=== PATIENT | female | born 1945 | race Caucasian/White ===

== ENCOUNTER 2017-03-23 10:59 | Emergency (ER) | payer MEDICARE, BC ==
[2009-02-11 10:36] VITALS: BP 141/80
[~2017-03-23] VITALS: Ht 162.6 cm; Wt 81.8 kg
[~2017-03-23 10:59] MED LIST: ALLEGRA 180MG180 MG PO; AMIODARONE HCL200 MG PO; CALCIUM 600600 M2 PO; CALTRATE-600 W600 MG PO; CARDIZEM CD 12120 MG PO; CLARITIN 1010 MG/TAB PO; COUMADIN 5MG5 MG/TAB PO; COUMADIN 77.5 MG/TAB PO; COUMADIN PO; DETROL LA 2 MG2 MG PO; DETROL LA4 PO; DIGITEK0.125 MG PO; ECOTRIN325 MG PO; FROVA PO; HYZAAR 25 MG-101 TAB PO; LISINOPRIL/HCTZ1 TAB PO; LISINOPRIL10 MG PO; LOPRESSOR 550 MG/TAB PO; METOPROLOL100 MG PO; MULTIPLE VITAMI1 CAP PO; MULTIPLE VITAMI1 TAB PO; MVI PO; NORVASC2.5 MG PO; PRILOSEC 20MG20 MG PO; PRILOSEC40 MG PO; SANCTURA XR60 M1 PO; SANCTURA XR60 MG PO; TIKOSYN0.125 MG PO; TIKOSYN0.25 MG PO; TOPAMAX50 MG PO; TOPIRAMATE25 MG PO; TOPROL XL25 MG PO; WARFARIN SOD5 MG PO; ZESTRIL 10MG10 MG PO; detrol LA; flecainide
[2017-03-23 11:04] VITALS: BP 171/96; TEMP 97.7
[2017-03-23 12:35] LABS: HEMATOCRIT 43.4 % (37.0-47.0); HEMOGLOBIN 14.7 g/dl (12.5-16.0); MEAN CELL VOLUME 89 fl (80.0-100.0); MEAN CORPUSCULAR HEMOGLOBIN 30 pg (27.0-31.0); MEAN CORPUSCULAR HGB CONC 34 g/dl (33.0-37.0); MEAN PLATELET VOLUME 9.4 fl (7.4-10.4); PLATELET COUNT 195 K/mm3 (130-400); RED BLOOD COUNT 4.87 M/mm3 (4.10-5.30); REDCELL DISTRIBUTION WIDTH-CV 12.9 % (11.5-14.5)
[2017-03-23 12:38] LABS: ADJUSTED CALCIUM 8.7 mg/dL (8.4-10.2); ALANINE AMINOTRANSFERASE 32 U/L (9-52); ALBUMIN 4.3 gm/dL (3.5-5.0); ALKALINE PHOSPHATASE 71 U/L (50-136); ANION GAP 13 mmol/L (7-16); BILIRUBIN,TOTAL 1.1 mg/dL (0.0-1.0); BLOOD UREA NITROGEN 19 mg/dL (7-17); CALCIUM 8.9 mg/dL (8.4-10.2); CARBON DIOXIDE 24 mmol/L (22-30); CHLORIDE 97 mmol/L (98-107); CREATININE, serum 1.04 mg/dL (0.52-1.25); GLUCOSE 99 mg/dL (74-106); POTASSIUM 4.4 mmol/L (3.4-5.0); SODIUM 134 mmol/L (137-145); TOTAL PROTEIN 7.1 gm/dL (6.4-8.2)
[2017-03-23 12:39] LABS: C-REACTIVE PROTEIN < 0.5 mg/dL (0.0-0.9)
[2017-03-23 12:51] LABS: ADD PATHOLOGY DIFF REVIEW NO; WHITE BLOOD COUNT 25.1 K/mm3 (4.8-10.8)
[2017-03-23 13:24] LABS: BAND 2 % (0-10); NEUTROPHILS 25 % (42.0-75.2); TOTAL CELLS COUNTED 100
[2017-03-23 13:25] LABS: PLATELET ESTIMATE NORMAL (NORMAL)
[2017-03-23] MEDS ORDERED: ZOFRAN ODT4 MG PO (14:48)
[2017-03-23] MEDS ORDERED: BONINE25 MG PO (14:48)
[2017-03-23 15:08] VITALS: PULSE 70
== END 2017-03-23 15:08 | disposition home or self-care (01) ==
LOC: COL.ER 10:59
PROVIDERS: Family Medicine
DX: R42 Dizziness and giddiness (principal); R11.2 Nausea with vomiting, unspecified; I48.91 Unspecified atrial fibrillation; I10 Essential (primary) hypertension; C91.10 Chronic lymphocytic leukemia of B-cell type not having achieved remission; Z95.0 Presence of cardiac pacemaker
CPT/HCPCS: J2405; J7030

== ENCOUNTER 2017-05-11 14:56 | Inpatient (IN) | payer MEDICARE, BC ==
[~2017-05-11] VITALS: Ht 162.6 cm; Wt 86.1 kg
[~2017-05-11 14:56] MED LIST changes: +BONINE25 MG PO; +ZOFRAN ODT4 MG PO
[2017-05-11] MEDS ORDERED: VANTIN100 MG (15:51)
[2017-05-11] MEDS ORDERED: ALLEGRA ALLERG180 MG PO (15:52)
[2017-05-11] MEDS ORDERED: TAMBOCOR150 MG PO (15:53)
[2017-05-11] MEDS ORDERED: OMEGA-3 1000 MG1 CAP PO (15:53)
[2017-05-11] MEDS ORDERED: FLONASEALLERGY NS (15:53)
[2017-05-11] MEDS ORDERED: LOPRESSOR100 MG PO (15:54)
[2017-05-11] MEDS ORDERED: COZAAR 50MG50 MG/TAB PO (15:54)
[2017-05-11] MEDS ORDERED: HCTZ 25MG TAB25 MG PO (15:54)
[2017-05-11] MEDS ORDERED: SYSTANE BALANCE10 M1 OP (15:55)
[2017-05-11] MEDS ORDERED: COUMADIN 5MG5 MG/TAB PO (15:56)
[2017-05-11] MEDS ORDERED: SANCTURA XR60 MG PO (15:56)
[2017-05-11 17:08] LABS: HEMATOCRIT 41.9 % (37.0-47.0); HEMOGLOBIN 14.6 g/dl (12.5-16.0); MEAN CELL VOLUME 87 fl (80.0-100.0); MEAN CORPUSCULAR HEMOGLOBIN 30 pg (27.0-31.0); MEAN CORPUSCULAR HGB CONC 35 g/dl (33.0-37.0); MEAN PLATELET VOLUME 9.3 fl (7.4-10.4); PLATELET COUNT 231 K/mm3 (130-400); RED BLOOD COUNT 4.81 M/mm3 (4.10-5.30); REDCELL DISTRIBUTION WIDTH-CV 13.3 % (11.5-14.5)
[2017-05-11 17:10] LABS: INR 2.3 (0.8-3.0); PROTHROMBIN TIME 26.5 SECONDS (9.7-12.8)
[2017-05-11 17:12] LABS: WHITE BLOOD COUNT 28.4 K/mm3 (4.8-10.8)
[2017-05-11 17:13] LABS: ADD PATHOLOGY DIFF REVIEW NO
[2017-05-11 17:15] LABS: ADJUSTED CALCIUM 10.6 mg/dL (8.4-10.2); ALBUMIN 4.4 gm/dL (3.5-5.0); BILIRUBIN,TOTAL 0.7 mg/dL (0.0-1.0); CALCIUM 10.9 mg/dL (8.4-10.2); CREATININE, serum 1.34 mg/dL (0.52-1.25); POTASSIUM 3.7 mmol/L (3.4-5.0); TOTAL PROTEIN 6.9 gm/dL (6.4-8.2)
[2017-05-11 17:17] LABS: C-REACTIVE PROTEIN 0.5 mg/dL (0.0-0.9)
[2017-05-11 18:27] LABS: BAND 10 % (0-10); NEUTROPHILS 40 % (42.0-75.2); PLATELET ESTIMATE NORMAL (NORMAL); TOTAL CELLS COUNTED 100
[2017-05-11 19:35] LABS: PH 6 (5-8); SQUAMOUS EPITHELIAL 0-2 /hpf; URINE APPEARANCE Clear; URINE BACTERIA None Seen /hpf; URINE BILIRUBIN Negative (NEGATIVE); URINE BLOOD 2+ (NEGATIVE); URINE COLOR Yellow; URINE GLUCOSE Negative (NEGATIVE); URINE KETONE Negative (NEGATIVE); URINE UROBILINOGEN Negative (NEGATIVE); URINE WBC 0-2 /hpf
[2017-05-11 20:17] VITALS: BP 182/92; PULSE 71; TEMP 97.9
[2017-05-11] MEDS ORDERED: TYLENOL 325MG325 MG PO (21:01)
[2017-05-11 21:07] LABS: ARTERIAL BLD GAS O2 SATURATION 64.2 % (92-100); ARTERIAL BLD GAS TCO2 CT 33.6; ARTERIAL BLOOD GAS BASE EXCESS 5.9 (-2-2); ARTERIAL BLOOD GAS PHT 7.41 C (7.35-7.45); ARTERIAL BLOOD GAS pH 7.41 (7.35-7.45); OXYHEMOGLOBIN 63.6 %
[2017-05-11 21:11] LABS: ALLEN TEST YES; ARTERIAL BLOOD GAS PO2 31.4 mmHg (80-100); ARTERIAL BLOOD GAS PO2T 31.4 (80-100); ATS? YES
[2017-05-11 22:09] VITALS: BP 121/61; BP 129/70; PULSE 70; PULSE 74
[2017-05-11 22:10] VITALS: BP 88/47; PULSE 72
[2017-05-11] MEDS ORDERED: COUMADIN 77.5 MG/TAB PO (22:58)
[2017-05-11 23:10] VITALS: BP 137/68; PULSE 74; TEMP 98.2
[2017-05-12 03:57] VITALS: BP 139/81; PULSE 56; TEMP 97.9
[2017-05-12 07:14] LABS: INR 2.2 (0.8-3.0); PROTHROMBIN TIME 25.3 SECONDS (9.7-12.8)
[2017-05-12 07:21] LABS: CALCIUM 9.1 mg/dL (8.4-10.2); CREATININE, serum 1.17 mg/dL (0.52-1.25); POTASSIUM 3.4 mmol/L (3.4-5.0)
[2017-05-12 07:25] LABS: HEMOGLOBIN 13.6 g/dl (12.5-16.0); MEAN CELL VOLUME 89 fl (80.0-100.0); MEAN CORPUSCULAR HEMOGLOBIN 30 pg (27.0-31.0); MEAN CORPUSCULAR HGB CONC 34 g/dl (33.0-37.0); MEAN PLATELET VOLUME 9.7 fl (7.4-10.4); PLATELET COUNT 206 K/mm3 (130-400); RED BLOOD COUNT 4.48 M/mm3 (4.10-5.30); REDCELL DISTRIBUTION WIDTH-CV 13.4 % (11.5-14.5)
[2017-05-12 07:31] LABS: ADD PATHOLOGY DIFF REVIEW NO; WHITE BLOOD COUNT 25.4 K/mm3 (4.8-10.8)
[2017-05-12 08:12] LABS: BAND 1 % (0-10); EOSINOPHIL 2 % (0-4); METAMYELOCYTE 2 % (0-0); NEUTROPHILS 24 % (42.0-75.2); PLATELET ESTIMATE NORMAL (NORMAL); TOTAL CELLS COUNTED 100
[2017-05-12 08:14] VITALS: BP 136/77; PULSE 71; TEMP 97.3
[2017-05-12 11:56] VITALS: BP 114/68; PULSE 70; TEMP 98.3
[2017-05-12 12:24] LABS: ARTERIAL BLD GAS O2 SATURATION 92.1 % (92-100); ARTERIAL BLD GAS TCO2 CT 30.9; ARTERIAL BLOOD GAS BASE EXCESS 4.5 (-2-2); ARTERIAL BLOOD GAS HCO3 29.5 meq/L (22-26); ARTERIAL BLOOD GAS pH 7.43 (7.35-7.45); OXYHEMOGLOBIN 91.4 %
[2017-05-12 12:25] LABS: ALLEN TEST YES; ALLENS TEST RESULT PASS; ATS? YES
[2017-05-12 15:53] VITALS: BP 111/66; PULSE 70; TEMP 98.1
[2017-05-12 21:04] VITALS: BP 146/82; PULSE 78; TEMP 97.6
[2017-05-13 00:25] VITALS: BP 127/66; PULSE 55; TEMP 97.7
[2017-05-13 04:03] VITALS: BP 103/60; PULSE 73; TEMP 97.6
[2017-05-13 06:35] LABS: MEAN CELL VOLUME 90 fl (80.0-100.0); MEAN CORPUSCULAR HGB CONC 33 g/dl (33.0-37.0); MEAN PLATELET VOLUME 9.4 fl (7.4-10.4); PLATELET COUNT 191 K/mm3 (130-400); RED BLOOD COUNT 3.97 M/mm3 (4.10-5.30); REDCELL DISTRIBUTION WIDTH-CV 13.5 % (11.5-14.5)
[2017-05-13 06:45] LABS: CALCIUM 8.2 mg/dL (8.4-10.2); CREATININE, serum 1.12 mg/dL (0.52-1.25); POTASSIUM 3.6 mmol/L (3.4-5.0)
[2017-05-13 06:51] LABS: HEMATOCRIT 35.9 % (37.0-47.0); HEMOGLOBIN 11.9 g/dl (12.5-16.0); MEAN CORPUSCULAR HEMOGLOBIN 30 pg (27.0-31.0); WHITE BLOOD COUNT 24.4 K/mm3 (4.8-10.8)
[2017-05-13 07:53] VITALS: BP 132/79; PULSE 70; TEMP 98.9
[2017-05-13 09:02] LABS: BAND 8 % (0-10); BASOPHIL 2 % (0-2); EOSINOPHIL 1 % (0-4); METAMYELOCYTE 2 % (0-0); NEUTROPHILS 35 % (42.0-75.2); TOTAL CELLS COUNTED 100
[2017-05-13 09:07] LABS: ADD PATHOLOGY DIFF REVIEW YES
[2017-05-13 11:46] VITALS: BP 140/92; PULSE 71; TEMP 97.6
[2017-05-13 15:49] VITALS: BP 116/66; PULSE 70; TEMP 98.4
[2017-05-13 18:14] LABS: CALCIUM 8.5 mg/dL (8.4-10.2); CREATININE, serum 1.3 mg/dL (0.52-1.25); POTASSIUM 3.5 mmol/L (3.4-5.0)
[2017-05-13 20:54] VITALS: BP 129/67; PULSE 70; TEMP 98
[2017-05-14 04:40] VITALS: BP 115/67; PULSE 75
[2017-05-14 07:59] LABS: HEMOGLOBIN 12.2 g/dl (12.5-16.0); MEAN CELL VOLUME 89 fl (80.0-100.0); MEAN CORPUSCULAR HEMOGLOBIN 30 pg (27.0-31.0); MEAN CORPUSCULAR HGB CONC 34 g/dl (33.0-37.0); MEAN PLATELET VOLUME 9.5 fl (7.4-10.4); PLATELET COUNT 176 K/mm3 (130-400); RED BLOOD COUNT 4.06 M/mm3 (4.10-5.30); REDCELL DISTRIBUTION WIDTH-CV 13.7 % (11.5-14.5)
[2017-05-14 08:05] LABS: ADD PATHOLOGY DIFF REVIEW NO; HEMATOCRIT 36.3 % (37.0-47.0); WHITE BLOOD COUNT 20.4 K/mm3 (4.8-10.8)
[2017-05-14 08:09] LABS: CALCIUM 8.5 mg/dL (8.4-10.2); CREATININE, serum 1.14 mg/dL (0.52-1.25); POTASSIUM 3.8 mmol/L (3.4-5.0)
[2017-05-14 08:20] VITALS: BP 122/70; PULSE 98; TEMP 97.5
[2017-05-14 08:48] LABS: BAND 10 % (0-10); EOSINOPHIL 3 % (0-4); NEUTROPHILS 48 % (42.0-75.2); TOTAL CELLS COUNTED 100
[2017-05-14 08:50] LABS: PLATELET ESTIMATE NORMAL (NORMAL)
[2017-05-14] MEDS ORDERED: COZAAR 50MG50 MG/TAB PO (09:11)
[2017-05-14] MEDS ORDERED: K-TAB20 PO (09:11)
[2017-05-14] MEDS ORDERED: HCTZ 25MG TAB25 MG PO (09:11)
[2017-05-14] MEDS ORDERED: MAG-OX 400400 MG/TAB PO (09:11)
[2017-05-14] MEDS ORDERED: MIRALAX PA17 GM/Dose PO (09:12)
[2017-05-14] MEDS ORDERED: COLACE 100100 MG/CAP PO (09:12)
[2017-05-14 18:55] LABS: RHEUMATOID FACTOR-SCREEN <15 IU/mL (0-29)
[2017-05-14 19:23] LABS: .THYROGLOBULIN ANTIBODIES <3 IU/mL (0-5)
[2017-05-16 08:50] LABS: PATHOLOGY DIFF REVIEW OK
[2017-05-16 21:10] LABS: ANA SCREEN with REFLEX Negative (Negative)
== END 2017-05-14 11:25 | DRG 64 ==
LOC: COL.ER 14:56 → MEDICAL 19:16
PROVIDERS: Emergency Medicine; Nurse Practitioner Family; Physician Assistant; Psychiatry & Neurology Neurology
DX: I63.9 Cerebral infarction, unspecified (principal); I50.31 Acute diastolic (congestive) heart failure; N17.9 Acute kidney failure, unspecified; C91.10 Chronic lymphocytic leukemia of B-cell type not having achieved remission; E87.1 Hypo-osmolality and hyponatremia; I11.0 Hypertensive heart disease with heart failure; R26.0 Ataxic gait; R47.02 Dysphasia; I48.91 Unspecified atrial fibrillation; Z95.0 Presence of cardiac pacemaker; M79.7 Fibromyalgia; E87.8 Other disorders of electrolyte and fluid balance, not elsewhere classified; Z79.01 Long term (current) use of anticoagulants; Z91.81 History of falling; K31.84 Gastroparesis; I08.1 Rheumatic disorders of both mitral and tricuspid valves
CPT/HCPCS: 99222-AI; 99233-AI; 99239; J1940; J2405; J7030; Q9967

== ENCOUNTER 2017-05-13 12:36 | Inpatient (IN) | payer MEDICARE, BC ==
[~2017-05-13] VITALS: Ht 162.6 cm; Wt 82.8 kg
[~2017-05-13 12:36] MED LIST changes: +ALLEGRA ALLERG180 MG PO; +COZAAR 50MG50 MG/TAB PO; +FLONASEALLERGY NS; +HCTZ 25MG TAB25 MG PO; +LOPRESSOR100 MG PO; +OMEGA-3 1000 MG1 CAP PO; +SYSTANE BALANCE10 M1 OP; +TAMBOCOR150 MG PO; +TYLENOL 325MG325 MG PO; +VANTIN100 MG
[2017-05-14] MEDS ORDERED: K-TAB20 PO (09:11)
[2017-05-14] MEDS ORDERED: COZAAR 50MG50 MG/TAB PO (09:11)
[2017-05-14] MEDS ORDERED: MAG-OX 400400 MG/TAB PO (09:11)
[2017-05-14] MEDS ORDERED: HCTZ 25MG TAB25 MG PO (09:11)
[2017-05-14] MEDS ORDERED: COLACE 100100 MG/CAP PO (09:12)
[2017-05-14] MEDS ORDERED: MIRALAX PA17 GM/Dose PO (09:12)
[2017-05-14 13:33] VITALS: BP 91/51; PULSE 72; TEMP 98.2
[2017-05-14 21:30] VITALS: BP 114/70; PULSE 66; TEMP 98.6
[2017-05-15 06:41] VITALS: BP 142/72; PULSE 74; TEMP 98.5
[2017-05-15 16:44] VITALS: BP 156/86; PULSE 72; TEMP 99.5
[2017-05-16 04:23] VITALS: BP 134/61; PULSE 58; TEMP 97.8
[2017-05-16 05:23] LABS: HEMATOCRIT 39.3 % (37.0-47.0); HEMOGLOBIN 12.9 g/dl (12.5-16.0); MEAN CELL VOLUME 91 fl (80.0-100.0); MEAN CORPUSCULAR HEMOGLOBIN 30 pg (27.0-31.0); MEAN CORPUSCULAR HGB CONC 33 g/dl (33.0-37.0); MEAN PLATELET VOLUME 9.2 fl (7.4-10.4); PLATELET COUNT 188 K/mm3 (130-400); RED BLOOD COUNT 4.32 M/mm3 (4.10-5.30); REDCELL DISTRIBUTION WIDTH-CV 13.8 % (11.5-14.5)
[2017-05-16 05:29] LABS: WHITE BLOOD COUNT 26.4 K/mm3 (4.8-10.8)
[2017-05-16 05:30] LABS: ADD PATHOLOGY DIFF REVIEW NO
[2017-05-16 05:41] LABS: CALCIUM 8.9 mg/dL (8.4-10.2); CREATININE, serum 1.07 mg/dL (0.52-1.25); MAGNESIUM 2.2 mg/dL (1.6-2.3); POTASSIUM 4.5 mmol/L (3.4-5.0)
[2017-05-16 06:11] LABS: BAND 3 % (0-10); NEUTROPHILS 29 % (42.0-75.2); TOTAL CELLS COUNTED 100
[2017-05-16 06:12] LABS: PLATELET ESTIMATE NORMAL (NORMAL)
[2017-05-16 16:24] VITALS: BP 160/90; PULSE 70; TEMP 97.5
[2017-05-17 04:45] VITALS: BP 109/74; PULSE 68; TEMP 98.6
[2017-05-17 16:24] VITALS: BP 152/93; PULSE 72; TEMP 97.8
[2017-05-17 21:30] VITALS: BP 177/88; PULSE 71
[2017-05-18 04:39] VITALS: BP 129/74; PULSE 56; TEMP 98.2
[2017-05-18 11:35] LABS: INR 1.7 (0.8-3.0); PROTHROMBIN TIME 19.5 SECONDS (9.7-12.8)
[2017-05-18 18:18] VITALS: BP 110/67; PULSE 74; TEMP 97.7
[2017-05-19 04:29] VITALS: BP 141/72; PULSE 56; TEMP 98.3
[2017-05-19 09:00] VITALS: BP 80/40; PULSE 72; TEMP 97.8
[2017-05-19 12:50] VITALS: BP 91/40; PULSE 71; TEMP 97.4
[2017-05-19 16:25] LABS: PH 7 (5-8); SQUAMOUS EPITHELIAL 0-2 /hpf; URINE APPEARANCE Hazy; URINE BACTERIA Occasional /hpf; URINE BILIRUBIN Negative (NEGATIVE); URINE BLOOD Negative (NEGATIVE); URINE COLOR Yellow; URINE GLUCOSE 1+ (NEGATIVE); URINE KETONE Negative (NEGATIVE); URINE RBC 0-2 /hpf; URINE UROBILINOGEN Negative (NEGATIVE)
[2017-05-19 18:37] VITALS: BP 142/71; PULSE 71; TEMP 97.5
[2017-05-19 21:00] VITALS: BP 154/89
[2017-05-20 04:30] VITALS: BP 108/67; PULSE 68; TEMP 98.5
[2017-05-20 05:53] LABS: ADD PATHOLOGY DIFF REVIEW NO
[2017-05-20 05:55] LABS: HEMATOCRIT 39.1 % (37.0-47.0); HEMOGLOBIN 12.6 g/dl (12.5-16.0); MEAN CELL VOLUME 93 fl (80.0-100.0); MEAN CORPUSCULAR HEMOGLOBIN 30 pg (27.0-31.0); MEAN CORPUSCULAR HGB CONC 32 g/dl (33.0-37.0); MEAN PLATELET VOLUME 9.3 fl (7.4-10.4); PLATELET COUNT 205 K/mm3 (130-400); RED BLOOD COUNT 4.21 M/mm3 (4.10-5.30); REDCELL DISTRIBUTION WIDTH-CV 14.2 % (11.5-14.5)
[2017-05-20 05:58] LABS: WHITE BLOOD COUNT 24.3 K/mm3 (4.8-10.8)
[2017-05-20 06:07] LABS: BAND 1 % (0-10); EOSINOPHIL 1 % (0-4); NEUTROPHILS 15 % (42.0-75.2); TOTAL CELLS COUNTED 100
[2017-05-20 06:10] LABS: ALBUMIN 3.9 gm/dL (3.5-5.0); BILIRUBIN,TOTAL 0.4 mg/dL (0.0-1.0); CALCIUM 8.9 mg/dL (8.4-10.2); CREATININE, serum 1.16 mg/dL (0.52-1.25); MAGNESIUM 2.3 mg/dL (1.6-2.3); POTASSIUM 4.9 mmol/L (3.4-5.0); TOTAL PROTEIN 6.2 gm/dL (6.4-8.2)
[2017-05-20 06:19] LABS: INR 1.6 (0.8-3.0); PROTHROMBIN TIME 18.5 SECONDS (9.7-12.8)
[2017-05-20 16:36] VITALS: BP 134/73; PULSE 78; TEMP 98.6
[2017-05-21 06:06] VITALS: BP 114/60; PULSE 73; TEMP 98.1
[2017-05-21 07:40] LABS: INR 1.7 (0.8-3.0); PROTHROMBIN TIME 19.6 SECONDS (9.7-12.8)
[2017-05-21 17:23] VITALS: BP 134/71; PULSE 79; TEMP 98.3
[2017-05-22 05:04] VITALS: BP 135/58; PULSE 63; TEMP 98.4
[2017-05-22 15:57] VITALS: BP 162/77; PULSE 78; TEMP 98.2
[2017-05-23 04:51] VITALS: BP 128/61; PULSE 72; TEMP 98.6
[2017-05-23 07:34] LABS: INR 2.3 (0.8-3.0); PROTHROMBIN TIME 26.1 SECONDS (9.7-12.8)
[2017-05-23 16:49] VITALS: BP 133/73; PULSE 73; TEMP 98.9
[2017-05-23 21:30] VITALS: BP 165/67; PULSE 63
[2017-05-24 04:36] VITALS: BP 130/58; PULSE 66; TEMP 98.8
[2017-05-24 07:12] LABS: INR 1.9 (0.8-3.0)
[2017-05-24 17:32] VITALS: BP 150/77; PULSE 71; TEMP 99.1
[2017-05-24 21:30] VITALS: BP 145/85; PULSE 73
[2017-05-25 05:20] VITALS: BP 129/72; PULSE 77; TEMP 97.8
[2017-05-25 06:08] LABS: INR 1.9 (0.8-3.0); PROTHROMBIN TIME 21.2 SECONDS (9.7-12.8)
[2017-05-25] MEDS ORDERED: COZAAR 25MG25 MG/TAB PO (11:17)
[2017-05-25] MEDS ORDERED: LOPRESSOR 550 MG/TAB PO (11:17)
[2017-05-25] MEDS ORDERED: K-TAB20 PO (11:18)
[2017-05-25] MEDS ORDERED: MAG-OX 400400 MG/TAB PO (11:19)
[2017-05-25] MEDS ORDERED: LIPITOR 10MG10 MG PO (11:23)
== END 2017-05-25 15:25 | disposition home or self-care (01) | DRG 57 ==
PROVIDERS: Internal Medicine
DX: I69.365 Other paralytic syndrome following cerebral infarction, bilateral (principal); G82.20 Paraplegia, unspecified; N39.0 Urinary tract infection, site not specified; I48.91 Unspecified atrial fibrillation; I10 Essential (primary) hypertension; M79.7 Fibromyalgia; B96.20 Unspecified Escherichia coli [E. coli] as the cause of diseases classified elsewhere
CPT/HCPCS: 99222-AI; 99232-AI; 99233-AI; 99239; J0696; J7030

== ENCOUNTER → 2017-09-06 | Outpatient (CLI) | payer MEDICARE, BC ==
[~2017-09-06] MED LIST changes: +B-121000 MCG PO; +CARTIA XT120 MG PO; +COLACE 100100 MG/CAP PO; +COZAAR 25MG25 MG/TAB PO; +K-TAB20 PO; +LIPITOR 10MG10 MG PO; +MAG-OX 400400 MG/TAB PO; +MAGNESIUM250 M1 PO; +MIRALAX PA17 GM/Dose PO
== END ==
LOC: MC.RAD 16:20
DX: Z12.31 Encounter for screening mammogram for malignant neoplasm of breast (principal); Z95.0 Presence of cardiac pacemaker

== ENCOUNTER 2017-09-13 18:42 | Emergency (ER) | payer MEDICARE, BC ==
[2009-02-11 10:36] VITALS: BP 141/80
[~2017-09-13] VITALS: Ht 162.6 cm; Wt 82.3 kg
[~2017-09-13 18:42] MED LIST changes: -B-121000 MCG PO; -CARTIA XT120 MG PO; -MAGNESIUM250 M1 PO
[2017-09-13 18:44] VITALS: TEMP 98
[2017-09-13 19:06] LABS: HEMATOCRIT 43.1 % (37.0-47.0); MEAN CELL VOLUME 93 fl (80.0-100.0); MEAN CORPUSCULAR HEMOGLOBIN 30 pg (27.0-31.0); MEAN CORPUSCULAR HGB CONC 33 g/dl (33.0-37.0); PLATELET COUNT 208 K/mm3 (130-400); RED BLOOD COUNT 4.65 M/mm3 (4.10-5.30)
[2017-09-13] MEDS ORDERED: COZAAR 25MG25 MG/TAB PO (19:12)
[2017-09-13 19:16] LABS: WHITE BLOOD COUNT 23.6 K/mm3 (4.8-10.8)
[2017-09-13 19:17] LABS: ADD PATHOLOGY DIFF REVIEW NO; INR 1.5 (0.8-3.0); PROTHROMBIN TIME 16.8 SECONDS (9.7-12.8)
[2017-09-13 19:18] LABS: ADJUSTED CALCIUM 8.8 mg/dL (8.4-10.2); ALANINE AMINOTRANSFERASE 36 U/L (9-52); ALKALINE PHOSPHATASE 106 U/L (50-136); ANION GAP 13 mmol/L (7-16); BILIRUBIN,TOTAL 0.4 mg/dL (0.0-1.0); BLOOD UREA NITROGEN 21 mg/dL (7-17); CALCIUM 9.6 mg/dL (8.4-10.2); CARBON DIOXIDE 25 mmol/L (22-30); CHLORIDE 103 mmol/L (98-107); CREATINE KINASE 101 U/L (30-135); CREATININE, serum 1.18 mg/dL (0.52-1.25); GLUCOSE 100 mg/dL (74-106); POTASSIUM 4.1 mmol/L (3.4-5.0); SODIUM 141 mmol/L (137-145); TOTAL PROTEIN 7.6 gm/dL (6.4-8.2)
[2017-09-13] MEDS ORDERED: MAGNESIUM250 M1 PO (19:18)
[2017-09-13] MEDS ORDERED: B-121000 MCG PO (19:19)
[2017-09-13] MEDS ORDERED: CARTIA XT120 MG PO (19:20)
[2017-09-13 19:27] LABS: BAND 2 % (0-10); EOSINOPHIL 2 % (0-4); NEUTROPHILS 29 % (42.0-75.2); PLATELET ESTIMATE NORMAL (NORMAL); TOTAL CELLS COUNTED 100
[2017-09-13 19:28] LABS: LYMPHOCYTE 62 % (20.0-51.0)
[2017-09-13 19:30] LABS: B-TYPE NATRIURETIC PEPTIDE 691 pg/mL (0-125)
[2017-09-13 19:32] LABS: TROPONIN-I < 0.012 ng/mL (0.000-0.034)
[2017-09-13] MEDS ORDERED: COUMADIN 5MG5 MG/TAB PO ×2 (20:27→20:28)
[2017-09-13 21:41] VITALS: BP 161/89; PULSE 69
== END 2017-09-13 21:42 | disposition home or self-care (01) ==
LOC: COL.ER 18:42
PROVIDERS: Emergency Medicine
DX: I10 Essential (primary) hypertension (principal); I48.91 Unspecified atrial fibrillation; Z95.0 Presence of cardiac pacemaker; Z79.01 Long term (current) use of anticoagulants
CPT/HCPCS: J0360

== ENCOUNTER → 2019-05-10 | Outpatient (CLI) | payer MEDICARE, BC ==
[~2019-05-10] MED LIST changes: +B-121000 MCG PO; +CARTIA XT120 MG PO; +MAGNESIUM250 M1 PO
== END ==
LOC: MC.RAD 14:42
DX: Z12.31 Encounter for screening mammogram for malignant neoplasm of breast (principal); Z95.0 Presence of cardiac pacemaker

== ENCOUNTER 2019-08-30 08:15 | Outpatient (RCR) | payer MEDICARE, BC | END 2019-09-10 | disposition home or self-care (01) | LOC: WSST | DX: G31.84 Mild cognitive impairment of uncertain or unknown etiology (principal) ==

== ENCOUNTER 2019-10-05 17:10 | Emergency (ER) | payer MEDICARE, BC ==
[2009-02-11 10:36] VITALS: BP 141/80
[~2019-10-05] VITALS: Ht 160 cm; Wt 75.0 kg
[2019-10-05 18:43] LABS: HEMATOCRIT 41.3 % (37.0-47.0); HEMOGLOBIN 13.7 g/dl (12.5-16.0); MEAN CELL VOLUME 93 fl (80.0-100.0); MEAN CORPUSCULAR HEMOGLOBIN 31 pg (27.0-31.0); MEAN CORPUSCULAR HGB CONC 33 g/dl (33.0-37.0); MEAN PLATELET VOLUME 9.3 fl (7.4-10.4); PLATELET COUNT 181 K/mm3 (130-400); RED BLOOD COUNT 4.45 M/mm3 (4.10-5.30); REDCELL DISTRIBUTION WIDTH-CV 13.1 % (11.5-14.5)
[2019-10-05 18:50] LABS: INR 1.6 (0.8-3.0); PROTHROMBIN TIME 19.5 SECONDS (9.7-12.8)
[2019-10-05 19:02] LABS: COLLECTION METHOD CLEAN CATCH
[2019-10-05 19:06] LABS: ALANINE AMINOTRANSFERASE 25 U/L (9-52); ALBUMIN 4.1 gm/dL (3.5-5.0); ALKALINE PHOSPHATASE 75 U/L (50-136); ANION GAP 10 mmol/L (7-16); AST,SGOT 26 U/L (15-37); BILIRUBIN,TOTAL 0.5 mg/dL (0.0-1.0); BLOOD UREA NITROGEN 26 mg/dL (7-17); CALCIUM 9.4 mg/dL (8.4-10.2); CARBON DIOXIDE 28 mmol/L (22-30); CHLORIDE 102 mmol/L (98-107); CREATININE, serum 1.23 (0.52-1.25); GLUCOSE 106 mg/dL (74-106); POTASSIUM 3.4 mmol/L (3.4-5.0); SODIUM 139 mmol/L (137-145); TOTAL PROTEIN 6.4 gm/dL (6.4-8.2)
[2019-10-05 19:08] LABS: C-REACTIVE PROTEIN < 0.5 mg/dL (0.0-0.9)
[2019-10-05 19:11] LABS: LYMPHOCYTE 52 % (20.0-51.0); NEUTROPHILS 46 % (42.0-75.2)
[2019-10-05 19:12] LABS: PLATELET ESTIMATE NORMAL (NORMAL)
[2019-10-05 19:15] LABS: TROPONIN-I < 0.012 ng/mL (0.000-0.035)
[2019-10-05 19:36] LABS: MUCOUS Present /lpf; PH 6 (5-8); SQUAMOUS EPITHELIAL 0-2 /hpf; URINE APPEARANCE Clear; URINE BACTERIA Rare /hpf; URINE BILIRUBIN Negative (NEGATIVE); URINE BLOOD 2+ (NEGATIVE); URINE COLOR Yellow; URINE GLUCOSE Negative (NEGATIVE); URINE KETONE Negative (NEGATIVE); URINE LEUKOCYTE ESTERASE 2+ (NEGATIVE); URINE NITRATE Positive (NEGATIVE); URINE PROTEIN(semi-quant) Negative (NEGATIVE); URINE RBC 0-2 /hpf; URINE UROBILINOGEN Negative (NEGATIVE)
[2019-10-05] MEDS ORDERED: CEFTIN500 MG PO (20:05)
[2019-10-05 20:22] VITALS: BP 116/66; PULSE 73; TEMP 98.4
== END 2019-10-05 20:35 | disposition home or self-care (01) ==
LOC: COL.ER 17:10
PROVIDERS: Emergency Medicine
DX: I48.91 Unspecified atrial fibrillation (principal); N39.0 Urinary tract infection, site not specified; C91.10 Chronic lymphocytic leukemia of B-cell type not having achieved remission; I10 Essential (primary) hypertension; F41.9 Anxiety disorder, unspecified; Z79.01 Long term (current) use of anticoagulants
CPT/HCPCS: J7030

== ENCOUNTER 2019-10-29 12:45 | Outpatient (RCR) | payer MEDICARE, BC ==
[~2019-10-29 12:45] MED LIST changes: +CEFTIN500 MG PO
== END 2019-11-04 | disposition still patient (30) ==
LOC: MKS.ESL.PT
DX: M70.62 Trochanteric bursitis, left hip (principal); M75.41 Impingement syndrome of right shoulder

== ENCOUNTER 2019-11-01 07:03 | Emergency (ER) | payer MEDICARE, BC ==
[2009-02-11 10:36] VITALS: BP 141/80
[~2019-11-01] VITALS: Ht 160 cm; Wt 75.0 kg
[2019-11-01 07:07] VITALS: BP 15/72; TEMP 98.8
[2019-11-01 07:49] LABS: HEMATOCRIT 42.7 % (37.0-47.0); MEAN CELL VOLUME 94 fl (80.0-100.0); MEAN CORPUSCULAR HEMOGLOBIN 31 pg (27.0-31.0); MEAN CORPUSCULAR HGB CONC 33 g/dl (33.0-37.0); MEAN PLATELET VOLUME 9.4 fl (7.4-10.4); PLATELET COUNT 192 K/mm3 (130-400); RED BLOOD COUNT 4.55 M/mm3 (4.10-5.30)
[2019-11-01 07:52] LABS: INR 2.4 (0.8-3.0); PROTHROMBIN TIME 29.3 SECONDS (9.7-12.8)
[2019-11-01 08:44] LABS: EOSINOPHIL 1 % (0-4); LYMPHOCYTE 78 % (20.0-51.0); NEUTROPHILS 19 % (42.0-75.2); PLATELET ESTIMATE NORMAL (NORMAL)
[2019-11-01 09:05] VITALS: PULSE 76
== END 2019-11-01 09:05 | disposition home or self-care (01) ==
LOC: COL.ER 07:03
PROVIDERS: Emergency Medicine
DX: S00.03XA Contusion of scalp, initial encounter (principal); R40.2412 Glasgow coma scale score 13-15, at arrival to emergency department; I48.91 Unspecified atrial fibrillation; Z79.01 Long term (current) use of anticoagulants; W22.8XXA Striking against or struck by other objects, initial encounter; Y92.009 Unspecified place in unspecified non-institutional (private) residence as the place of occurrence of the external cause

== ENCOUNTER 2019-11-15 15:32 | Outpatient (RCR) | payer MEDICARE, BC | END 2020-02-13 | disposition home or self-care (01) | LOC: WSST | DX: G31.84 Mild cognitive impairment of uncertain or unknown etiology (principal) ==

== ENCOUNTER 2020-06-14 17:06 | Emergency (ER) | payer MEDICARE, BC ==
[2009-02-11 10:36] VITALS: BP 141/80
[~2020-06-14] VITALS: Ht 160 cm; Wt 85.0 kg
[~2020-06-14 17:06] MED LIST changes: +ATIVAN 0.50.5 MG/TAB PO; +CATAPRES 0.1MG0.1 MG PO; +CEPHALEXIN500 M1 PO; +COUMADIN 1010 MG/TAB PO; +FLEXERIL 1010 MG/TAB PO; +HYDRODIURIL50 MG PO; +NORVASC 5MG5 MG/TAB PO
[2020-06-14 17:15] VITALS: TEMP 98.2
[2020-06-14 17:36] LABS: HEMATOCRIT 44.8 % (37.0-47.0); HEMOGLOBIN 14.8 g/dl (12.5-16.0); MEAN CELL VOLUME 92 fl (80.0-100.0); MEAN CORPUSCULAR HEMOGLOBIN 30 pg (27.0-31.0); MEAN CORPUSCULAR HGB CONC 33 g/dl (33.0-37.0); PLATELET COUNT 218 K/mm3 (130-400); RED BLOOD COUNT 4.89 M/mm3 (4.10-5.30); REDCELL DISTRIBUTION WIDTH-CV 13.7 % (11.5-14.5)
[2020-06-14 17:41] LABS: ALBUMIN 4.7 gm/dL (3.5-5.0); CALCIUM 9.5 mg/dL (8.4-10.2); CREATININE, serum 1.3 (0.52-1.25); POTASSIUM 3.9 mmol/L (3.4-5.0); TOTAL PROTEIN 7.4 gm/dL (6.4-8.2)
[2020-06-14 18:30] VITALS: BP 144/71; PULSE 64
[2020-06-14 18:41] LABS: EOSINOPHIL 0 % (0-4); HYPOCHROMIA 3+; LYMPHOCYTE 66 % (20.0-51.0); NEUTROPHILS 30 % (42.0-75.2); PLATELET ESTIMATE NORMAL (NORMAL)
== END 2020-06-14 18:37 | disposition home or self-care (01) ==
LOC: COL.ER 17:06
PROVIDERS: Family Medicine
DX: I10 Essential (primary) hypertension (principal); I48.91 Unspecified atrial fibrillation; Z88.8 Allergy status to other drugs, medicaments and biological substances; Z79.01 Long term (current) use of anticoagulants

== ENCOUNTER 2020-07-08 13:45 | Emergency (ER) | payer MEDICARE, BC ==
[2009-02-11 10:36] VITALS: BP 141/80
[~2020-07-08] VITALS: Ht 160 cm; Wt 84.1 kg
[2020-07-08 13:53] VITALS: TEMP 98
[2020-07-08] MEDS ORDERED: SANCTURA XR60 MG PO (14:28)
[2020-07-08] MEDS ORDERED: TURMERIC500 MG PO (14:29)
[2020-07-08 15:15] LABS: HEMATOCRIT 40.2 % (37.0-47.0); MEAN CELL VOLUME 93 fl (80.0-100.0); MEAN CORPUSCULAR HEMOGLOBIN 30 pg (27.0-31.0); MEAN CORPUSCULAR HGB CONC 32 g/dl (33.0-37.0); MEAN PLATELET VOLUME 9.1 fl (7.4-10.4); PLATELET COUNT 205 K/mm3 (130-400); RED BLOOD COUNT 4.33 M/mm3 (4.10-5.30)
[2020-07-08 15:27] LABS: ALANINE AMINOTRANSFERASE 29 U/L (4-34); ALBUMIN 4.1 gm/dL (3.5-5.0); ALKALINE PHOSPHATASE 84 U/L (50-136); ANION GAP 7 mmol/L (7-16); AST,SGOT 35 U/L (15-37); BILIRUBIN,TOTAL 0.5 mg/dL (0.0-1.0); BLOOD UREA NITROGEN 21 mg/dL (7-17); C-REACTIVE PROTEIN < 0.5 mg/dL (0.0-0.9); CALCIUM 8.6 mg/dL (8.4-10.2); CARBON DIOXIDE 31 mmol/L (22-30); CHLORIDE 101 mmol/L (98-107); CREATININE, serum 1.18 (0.52-1.25); GLUCOSE 115 mg/dL (74-106); POTASSIUM 3.7 mmol/L (3.4-5.0); SODIUM 139 mmol/L (137-145); TOTAL PROTEIN 6.4 gm/dL (6.4-8.2)
[2020-07-08 15:37] LABS: TROPONIN-I < 0.012 ng/mL (0.000-0.035)
[2020-07-08 15:40] LABS: ERYTHROCYTE SEDIMENTATION RATE 5 mm/hr (0-30)
[2020-07-08 15:44] LABS: EOSINOPHIL 1 % (0-4); LYMPHOCYTE 78 % (20.0-51.0); NEUTROPHILS 18 % (42.0-75.2); PLATELET ESTIMATE NORMAL (NORMAL)
[2020-07-08 15:53] LABS: PROTHROMBIN TIME 56.8 SECONDS (9.7-12.8)
[2020-07-08] MEDS ORDERED: NORCO 325 MG-51 TAB PO (17:19)
[2020-07-08 18:15] VITALS: BP 143/82; PULSE 84
[2020-07-09 08:36] LABS: PATHOLOGY DIFF REVIEW OK +
== END 2020-07-08 18:15 | disposition home or self-care (01) ==
LOC: COL.ER 13:45
PROVIDERS: Emergency Medicine
DX: M25.511 Pain in right shoulder (principal); I10 Essential (primary) hypertension; I48.91 Unspecified atrial fibrillation; E78.5 Hyperlipidemia, unspecified; Z79.01 Long term (current) use of anticoagulants; Z86.73 Personal history of transient ischemic attack (TIA), and cerebral infarction without residual deficits; Z85.6 Personal history of leukemia; Z87.891 Personal history of nicotine dependence; Z88.8 Allergy status to other drugs, medicaments and biological substances

== ENCOUNTER → 2020-08-08 | Outpatient (CLI) | payer MEDICARE, BC ==
[~2020-08-08] MED LIST changes: +NORCO 325 MG-51 TAB PO; +TURMERIC500 MG PO
== END ==
LOC: COL.RAD 07-29 08:15
DX: M75.121 Complete rotator cuff tear or rupture of right shoulder, not specified as traumatic (principal)

== ENCOUNTER 2020-11-01 19:52 | Emergency (ER) | payer MEDICARE, BC ==
[2009-02-11 10:36] VITALS: BP 141/80
[~2020-11-01] VITALS: Ht 160 cm; Wt 85.5 kg
[2020-11-01 20:00] VITALS: TEMP 97.9
[2020-11-01 20:43] VITALS: BP 145/69; PULSE 72
== END 2020-11-01 20:44 | disposition home or self-care (01) ==
LOC: COL.ER 19:52
DX: I10 Essential (primary) hypertension (principal); I48.91 Unspecified atrial fibrillation; Z95.0 Presence of cardiac pacemaker; Z98.61 Coronary angioplasty status; Z88.8 Allergy status to other drugs, medicaments and biological substances; Z79.01 Long term (current) use of anticoagulants

== ENCOUNTER → 2020-12-02 | Outpatient (CLI) | payer MEDICARE, BC | LOC: COL.RAD 07:40 | DX: I70.1 Atherosclerosis of renal artery (principal); I74.5 Embolism and thrombosis of iliac artery | CPT/HCPCS: Q9967 ==

== ENCOUNTER 2020-12-08 10:13 | Emergency (ER) | payer MEDICARE, BC ==
[2009-02-11 10:36] VITALS: BP 141/80
[~2020-12-08] VITALS: Ht 162.6 cm; Wt 84.1 kg
[2020-12-08 10:16] VITALS: TEMP 98.1
[2020-12-08 10:48] LABS: HEMATOCRIT 39.8 % (37.0-47.0); MEAN CELL VOLUME 92 fl (80.0-100.0); MEAN CORPUSCULAR HEMOGLOBIN 30 pg (27.0-31.0); MEAN CORPUSCULAR HGB CONC 33 g/dl (33.0-37.0); MEAN PLATELET VOLUME 9.2 fl (7.4-10.4); PLATELET COUNT 165 K/mm3 (130-400); RED BLOOD COUNT 4.34 M/mm3 (4.10-5.30)
[2020-12-08 10:58] LABS: ALANINE AMINOTRANSFERASE 15 U/L (4-34); ALBUMIN 3.5 gm/dL (3.5-5.0); ALKALINE PHOSPHATASE 59 U/L (50-136); ANION GAP 6 mmol/L (7-16); AST,SGOT 27 U/L (15-37); BILIRUBIN,TOTAL 0.6 mg/dL (0.0-1.0); BLOOD UREA NITROGEN 19 mg/dL (7-17); CALCIUM 8.4 mg/dL (8.4-10.2); CARBON DIOXIDE 30 mmol/L (22-30); CHLORIDE 103 mmol/L (98-107); CREATININE, serum 1.19 (0.52-1.25); GLUCOSE 64 mg/dL (74-106); POTASSIUM 3.5 mmol/L (3.4-5.0); SODIUM 139 mmol/L (137-145); TOTAL PROTEIN 5.6 gm/dL (6.4-8.2)
[2020-12-08 11:18] LABS: TROPONIN-I < 0.012 ng/mL (0.000-0.035)
[2020-12-08 11:25] LABS: EOSINOPHIL 3 % (0-4); LYMPHOCYTE 78 % (20.0-51.0); NEUTROPHILS 17 % (42.0-75.2); PLATELET ESTIMATE NORMAL (NORMAL)
[2020-12-08 11:31] LABS: COLLECTION METHOD CLEAN CATCH
[2020-12-08 11:43] LABS: PH 8 (5-8); SQUAMOUS EPITHELIAL 0-2 /hpf; URINE APPEARANCE Clear; URINE BACTERIA Rare /hpf; URINE BILIRUBIN Negative (NEGATIVE); URINE BLOOD Negative (NEGATIVE); URINE COLOR Yellow; URINE GLUCOSE Negative (NEGATIVE); URINE KETONE Negative (NEGATIVE); URINE LEUKOCYTE ESTERASE Negative (NEGATIVE); URINE NITRATE Negative (NEGATIVE); URINE PROTEIN(semi-quant) Negative (NEGATIVE); URINE UROBILINOGEN Negative (NEGATIVE)
[2020-12-08 14:15] VITALS: BP 108/53; PULSE 59
[2020-12-08] MEDS ORDERED: CATAPRES 0.1MG0.1 MG PO (14:34)
[2020-12-15] MEDS ORDERED: ELIQUIS 5MG PO (21:50)
== END 2020-12-08 14:20 | disposition short-term general hospital (02) ==
LOC: COL.ER 10:13
PROVIDERS: Physician Assistant
DX: Q27.1 Congenital renal artery stenosis (principal); I10 Essential (primary) hypertension; I48.91 Unspecified atrial fibrillation; Z20.822 Contact with and (suspected) exposure to COVID-19; Z86.73 Personal history of transient ischemic attack (TIA), and cerebral infarction without residual deficits; Z85.6 Personal history of leukemia; Z88.8 Allergy status to other drugs, medicaments and biological substances; Z87.891 Personal history of nicotine dependence; Z79.01 Long term (current) use of anticoagulants

== ENCOUNTER 2020-12-31 01:01 | Emergency (ER) | payer MEDICARE, BC ==
[2009-02-11 10:36] VITALS: BP 141/80
[~2020-12-31] VITALS: Ht 162.6 cm; Wt 84.5 kg
[~2020-12-31 01:01] MED LIST changes: +ELIQUIS 5MG PO
[2020-12-31 01:16] VITALS: TEMP 97.8
[2020-12-31 02:47] VITALS: BP 162/75; PULSE 83
== END 2020-12-31 02:47 | disposition home or self-care (01) ==
LOC: COL.ER 01:01
DX: I10 Essential (primary) hypertension (principal); I48.91 Unspecified atrial fibrillation; Z95.0 Presence of cardiac pacemaker; Z88.8 Allergy status to other drugs, medicaments and biological substances; Z87.891 Personal history of nicotine dependence

== ENCOUNTER → 2021-10-12 | Outpatient (CLI) | payer MEDICARE, BC | LOC: COL.RAD 10:48 | DX: M43.16 Spondylolisthesis, lumbar region (principal); M47.26 Other spondylosis with radiculopathy, lumbar region ==

== ENCOUNTER → 2021-11-23 | Outpatient (CLI) | payer MEDICARE, BC | LOC: COL.RAD 11:07 | DX: M47.896 Other spondylosis, lumbar region (principal); M41.86 Other forms of scoliosis, lumbar region; M43.16 Spondylolisthesis, lumbar region ==

== ENCOUNTER → 2021-11-23 | Outpatient (CLI) | payer MEDICARE, BC | LOC: MHCPAIN 09:56 | DX: M47.817 Spondylosis without myelopathy or radiculopathy, lumbosacral region (principal); M53.3 Sacrococcygeal disorders, not elsewhere classified; G89.29 Other chronic pain | CPT/HCPCS: G0463 ==

== ENCOUNTER → 2021-11-26 | Outpatient (CLI) | payer MEDICARE, BC | LOC: MHCPAIN 13:11 | DX: M47.817 Spondylosis without myelopathy or radiculopathy, lumbosacral region (principal); M53.3 Sacrococcygeal disorders, not elsewhere classified | CPT/HCPCS: G0260; J1040; Q9967 ==

== ENCOUNTER → 2021-12-14 | Outpatient (CLI) | payer MEDICARE, BC | LOC: MHCPAIN 09:56 | DX: M47.817 Spondylosis without myelopathy or radiculopathy, lumbosacral region (principal); M53.3 Sacrococcygeal disorders, not elsewhere classified; M54.50 Low back pain, unspecified | CPT/HCPCS: G0463 ==

== ENCOUNTER → 2021-12-31 | Outpatient (CLI) | payer MEDICARE, BC | LOC: MHCPAIN 09:09 | DX: M47.817 Spondylosis without myelopathy or radiculopathy, lumbosacral region (principal); M54.50 Low back pain, unspecified; M53.3 Sacrococcygeal disorders, not elsewhere classified ==

== ENCOUNTER → 2022-01-13 | Outpatient (CLI) | payer MEDICARE, BC | LOC: MHCPAIN 12:34 | DX: M47.896 Other spondylosis, lumbar region (principal); M47.897 Other spondylosis, lumbosacral region; M53.3 Sacrococcygeal disorders, not elsewhere classified; M54.16 Radiculopathy, lumbar region | CPT/HCPCS: G0463 ==

== ENCOUNTER → 2022-01-28 | Outpatient (CLI) | payer MEDICARE, BC | LOC: MHCPAIN 08:09 | DX: M47.816 Spondylosis without myelopathy or radiculopathy, lumbar region (principal); M53.3 Sacrococcygeal disorders, not elsewhere classified; M54.16 Radiculopathy, lumbar region | CPT/HCPCS: J1100; Q9967 ==

== ENCOUNTER 2022-02-16 21:17 | Emergency (ER) | payer MEDICARE, BC ==
[~2022-02-16] VITALS: Ht 162.6 cm; Wt 88.2 kg
[2022-02-16 21:22] VITALS: TEMP 98.1
[2022-02-16 22:04] LABS: HEMOGLOBIN 13.6 g/dl (12.5-16.0); MEAN CELL VOLUME 93 fl (80.0-100.0); MEAN CORPUSCULAR HEMOGLOBIN 30 pg (27-31); MEAN CORPUSCULAR HGB CONC 32 g/dl (33.0-37.0); MEAN PLATELET VOLUME 9.5 fl (7.4-10.4); PLATELET COUNT 203 K/mm3 (130-400); REDCELL DISTRIBUTION WIDTH-CV 14.1 % (11.5-14.5)
[2022-02-16 22:20] LABS: ALANINE AMINOTRANSFERASE 20 U/L (0-55); ALBUMIN 4.1 gm/dL (3.4-4.8); ALKALINE PHOSPHATASE 87 U/L (40-150); ANION GAP 13 mmol/L (7-16); AST,SGOT 29 U/L (5-34); BILIRUBIN,TOTAL 0.4 mg/dL (0.2-1.2); BLOOD UREA NITROGEN 25 mg/dL (10-20); CALCIUM 8.9 mg/dL (8.4-10.2); CARBON DIOXIDE 25 mmol/L (23-31); CHLORIDE 103 mmol/L (98-107); GLUCOSE 63 mg/dL (70-99); SODIUM 141 mmol/L (136-145); TOTAL PROTEIN 6.8 gm/dL (6.2-8.1)
[2022-02-16 22:28] LABS: TROPONIN-I < 0.010 ng/mL (0.00-0.033)
[2022-02-16 22:43] LABS: LYMPHOCYTE 82 % (20.0-51.0); NEUTROPHILS 16 % (42.0-75.2)
[2022-02-16 22:45] LABS: OVALOCYTES 1+; SCHISTOCYTES 1+; TEAR DROP CELLS 1+
[2022-02-16 23:10] VITALS: BP 140/71; PULSE 65
== END 2022-02-16 23:17 | disposition home or self-care (01) ==
LOC: COL.ER 21:17
PROVIDERS: Emergency Medicine
DX: I48.92 Unspecified atrial flutter (principal); Z79.01 Long term (current) use of anticoagulants

== ENCOUNTER → 2022-02-16 | Outpatient (CLI) | payer MEDICARE, BC | LOC: MHCPAIN 08:54 | DX: M47.816 Spondylosis without myelopathy or radiculopathy, lumbar region (principal); M53.3 Sacrococcygeal disorders, not elsewhere classified; M54.16 Radiculopathy, lumbar region | CPT/HCPCS: G0463 ==

== ENCOUNTER → 2022-02-25 | Outpatient (CLI) | payer MEDICARE, BC | LOC: MHCPAIN 08:26 | DX: M47.816 Spondylosis without myelopathy or radiculopathy, lumbar region (principal); M54.16 Radiculopathy, lumbar region; M53.3 Sacrococcygeal disorders, not elsewhere classified | CPT/HCPCS: J1100; Q9967 ==

== ENCOUNTER 2022-03-03 15:45 | Outpatient (RCR) | payer MEDICARE, BC | END 2022-03-16 | disposition home or self-care (01) | LOC: WSPT | DX: M54.16 Radiculopathy, lumbar region (principal) ==

== ENCOUNTER 2022-03-23 15:00 | Outpatient (RCR) | payer MEDICARE, BC | END 2022-04-15 | disposition still patient (30) | LOC: WSPT | DX: M54.16 Radiculopathy, lumbar region (principal) ==

== ENCOUNTER → 2022-03-29 | Outpatient (CLI) | payer MEDICARE, BC | LOC: MHCPAIN 10:33 | DX: M47.817 Spondylosis without myelopathy or radiculopathy, lumbosacral region (principal); M53.3 Sacrococcygeal disorders, not elsewhere classified; M54.16 Radiculopathy, lumbar region; I10 Essential (primary) hypertension; I25.10 Atherosclerotic heart disease of native coronary artery without angina pectoris; N18.9 Chronic kidney disease, unspecified | CPT/HCPCS: G0463 ==

== ENCOUNTER → 2022-06-30 | Outpatient (CLI) | payer MEDICARE, BC | LOC: MHCPAIN 14:56 | DX: M47.816 Spondylosis without myelopathy or radiculopathy, lumbar region (principal); M54.50 Low back pain, unspecified; M53.3 Sacrococcygeal disorders, not elsewhere classified | CPT/HCPCS: G0463 ==

== ENCOUNTER → 2022-08-09 | Outpatient (CLI) | payer MEDICARE, BC | LOC: MHCPAIN 13:02 | DX: M47.816 Spondylosis without myelopathy or radiculopathy, lumbar region (principal); M54.16 Radiculopathy, lumbar region; M53.3 Sacrococcygeal disorders, not elsewhere classified; M48.062 Spinal stenosis, lumbar region with neurogenic claudication | CPT/HCPCS: G0463; J1100; Q9967 ==

== ENCOUNTER 2023-03-13 11:15 | Inpatient (IN) | payer MEDICARE, BC ==
[~2023-03-13] VITALS: Ht 160 cm; Wt 90.9 kg
[2023-03-13 12:18] LABS: HEMATOCRIT 45.4 % (37.0-47.0); HEMOGLOBIN 14.1 g/dl (12.5-16.0); MEAN CELL VOLUME 94 fl (80.0-100.0); MEAN CORPUSCULAR HEMOGLOBIN 29 pg (27-31); MEAN CORPUSCULAR HGB CONC 31 g/dl (33.0-37.0); MEAN PLATELET VOLUME 9.5 fl (7.4-10.4); PLATELET COUNT 278 K/mm3 (130-400); RED BLOOD COUNT 4.81 M/mm3 (4.10-5.30); REDCELL DISTRIBUTION WIDTH-CV 14.2 % (11.5-14.5)
[2023-03-13 12:35] LABS: ALANINE AMINOTRANSFERASE 12 U/L (0-55); ALBUMIN 3.1 gm/dL (3.4-4.8); ALKALINE PHOSPHATASE 84 U/L (40-150); ANION GAP 17 mmol/L (7-16); AST,SGOT 14 U/L (5-34); BILIRUBIN,TOTAL 0.8 mg/dL (0.2-1.2); BLOOD UREA NITROGEN 31 mg/dL (10-20); C-REACTIVE PROTEIN 31.64 mg/dL (0.00-0.50); CALCIUM 9.7 mg/dL (8.4-10.2); CARBON DIOXIDE 24 mmol/L (23-31); CHLORIDE 99 mmol/L (98-107); CREATININE, serum 1.78 mg/dL (0.57-1.11); GLUCOSE 125 mg/dL (70-99); POTASSIUM 3.9 mmol/L (3.5-4.5); SODIUM 140 mmol/L (136-145)
[2023-03-13 12:36] LABS: BAND 5 % (0-10); LYMPHOCYTE 64 % (20.0-51.0); NEUTROPHILS 14 % (42.0-75.2); PLATELET ESTIMATE NORMAL (NORMAL)
[2023-03-13 12:45] LABS: TROPONIN-I < 0.010 ng/mL (0.00-0.033)
[2023-03-13] MEDS ORDERED: VITAMIND3 5000 PO (13:49)
[2023-03-13] MEDS ORDERED: CATAPRES 0.1MG0.1 MG PO (13:50)
[2023-03-13] MEDS ORDERED: FLEXERIL 1010 MG/TAB PO (13:51)
[2023-03-13] MEDS ORDERED: BENADRYL25 M2 PO (13:52)
[2023-03-13] MEDS ORDERED: LASIX 20MG TABL20 MG PO (13:53)
[2023-03-13] MEDS ORDERED: ELIQUIS 5MG PO (13:53)
[2023-03-13] MEDS ORDERED: HCTZ12.5TAB PO (13:54)
[2023-03-13] MEDS ORDERED: HCTZ 25MG TAB25 MG (13:55)
[2023-03-13] MEDS ORDERED: NAMENDA 10MG TA10 MG PO (13:55)
[2023-03-13] MEDS ORDERED: LOPRESSOR 550 MG/TAB PO ×2 (13:57→13:59)
[2023-03-13] MEDS ORDERED: ULTRAM 50MG TAB50 MG (14:00)
[2023-03-13 14:33] VITALS: BP 127/76; PULSE 86; TEMP 97.6
[2023-03-13] MEDS ORDERED: RYTHMOL 15150 MG/TAB PO (14:33)
[2023-03-13 14:34] VITALS: BP 127/76; PULSE 86; TEMP 97.6
[2023-03-13 17:00] VITALS: BP_SYST 127
[2023-03-13 18:57] VITALS: BP 119/68; PULSE 112; TEMP 97.7
[2023-03-13 20:25] VITALS: BP_SYST 119
[2023-03-13 23:41] VITALS: BP 116/72; PULSE 110; TEMP 97.9
[2023-03-14] VITALS (24 sets, daily range): BP systolic 93–135; BP diastolic 52–95; PULSE 72–124; TEMP 97.9–98.2
[2023-03-14 01:04] LABS: COLLECTION METHOD CLEAN CATCH
[2023-03-14 01:14] LABS: MUCOUS Present (NOT PRESENT); SQUAMOUS EPITHELIAL 0-2 /hpf (0-10); URINE BACTERIA Rare /hpf (NONE SEEN); URINE RBC 0-2 /hpf (0-2)
[2023-03-14 01:15] LABS: URINE APPEARANCE Clear (CLEAR/HAZY); URINE BLOOD TRACE-INTACT (NEGATIVE); URINE COLOR Yellow (YELLOW); URINE GLUCOSE Negative (NEGATIVE); URINE KETONE Negative (NEGATIVE); URINE NITRATE Negative (NEGATIVE); URINE PROTEIN(semi-quant) Negative (NEGATIVE); URINE UROBILINOGEN 0.2 E.U/dL (0.2-1.0)
[2023-03-14 07:22] LABS: HEMATOCRIT 39.5 % (37.0-47.0); HEMOGLOBIN 12.8 g/dl (12.5-16.0); MEAN CELL VOLUME 90 fl (80.0-100.0); MEAN CORPUSCULAR HEMOGLOBIN 29 pg (27-31); MEAN CORPUSCULAR HGB CONC 32 g/dl (33.0-37.0); MEAN PLATELET VOLUME 9.4 fl (7.4-10.4); PLATELET COUNT 225 K/mm3 (130-400); RED BLOOD COUNT 4.37 M/mm3 (4.10-5.30); REDCELL DISTRIBUTION WIDTH-CV 14.1 % (11.5-14.5)
[2023-03-14 07:42] LABS: ALBUMIN 2.6 gm/dL (3.4-4.8); CALCIUM 8.9 mg/dL (8.4-10.2); CREATININE, serum 1.47 mg/dL (0.57-1.11); MAGNESIUM 1.9 mg/dL (1.6-2.6); PHOSPHOROUS 3.7 mg/dL (2.3-4.7); POTASSIUM 3.1 mmol/L (3.5-4.5)
--- NOTE | 2023-03-14 08:30 | NUR ---
Pt laying in bed upon entry. Morning medications administered per eMAR. Notified Dr. Higginbotham of morning BP; this nurse instructed to hold BP medication for this morning, reassess BP at 1100, and may administer medication if BP improves. Pt on 4L per NC. Telemetry remains on - paced. IV in L AC patent, no edema or redness. Assisted with oral hygiene. Call light within reach.
[2023-03-14 09:10] LABS: BAND 3 % (0-10); EOSINOPHIL 1 % (0-4); LYMPHOCYTE 57 % (20.0-51.0); PLATELET ESTIMATE NORMAL (NORMAL)
[2023-03-14 09:11] LABS: NEUTROPHILS 22 % (42.0-75.2)
--- NOTE | 2023-03-14 13:37 | NUR ---
RT informed this nurse of recent ekg obtained, read: HR 125 atrial flutter/ tachycardia with rapid ventricular response, ST elevation, *acute [place].* RT informed this nurse is aware. Troponin levels on order and results are <0.010. Dr. Higginbotham aware.
--- NOTE | 2023-03-14 14:17 | NUR ---
Started on cardizem gtt at 5mL/hr in L forearm by RASHAUN Cesar. Vitals in place.
--- NOTE | 2023-03-14 22:28 | NUR ---
Patient assessed around 2034. Complained of pain to chest related to cough. Given PRN [place] and Tessalon Peerl as requested. On oxygen at 4 L/min via NC. Reports SOB with exertion. Continues on Cardizem drip per orders. HRI. Remains in A-flutter on telemetry, rate has been 80s-90s. Voices no questions, needs, or concerns at this time. In bed with call light within reach. High fall risk precautions in place. Bed alarm on.
[2023-03-15] VITALS (14 sets, daily range): BP systolic 91–115; BP diastolic 49–74; PULSE 80–129; TEMP 97.6–98.4
--- NOTE | 2023-03-15 02:43 | NUR ---
BP 75/54. Recheck 91/49. Called [facility]. HR has been staying below 100s. Order to place Cardizem drip on hold. Patient denies dizziness and lightheadedness. IV fluids continue at 75 per orders. High fall risk precautions in place.
--- NOTE | 2023-03-15 05:29 | NUR ---
Cardizem drip remains on hold. Denies having pain and discomfort. Assisted to bathroom, stand by assist. Voices no questions, needs, or concerns at this time. In bed with call light within reach. Remains on oxygen at 5 L/min via NC.
[2023-03-15 06:51] LABS: HEMATOCRIT 39.7 % (37.0-47.0); HEMOGLOBIN 12.7 g/dl (12.5-16.0); MEAN CELL VOLUME 92 fl (80.0-100.0); MEAN CORPUSCULAR HEMOGLOBIN 29 pg (27-31); MEAN CORPUSCULAR HGB CONC 32 g/dl (33.0-37.0); MEAN PLATELET VOLUME 9.3 fl (7.4-10.4); PLATELET COUNT 250 K/mm3 (130-400); RED BLOOD COUNT 4.33 M/mm3 (4.10-5.30); REDCELL DISTRIBUTION WIDTH-CV 14.2 % (11.5-14.5)
[2023-03-15 07:12] LABS: ALBUMIN 2.5 gm/dL (3.4-4.8); CALCIUM 8.8 mg/dL (8.4-10.2); CREATININE, serum 1.47 mg/dL (0.57-1.11); MAGNESIUM 1.9 mg/dL (1.6-2.6); PHOSPHOROUS 3.4 mg/dL (2.3-4.7); POTASSIUM 3.3 mmol/L (3.5-4.5)
[2023-03-15 07:56] LABS: PATHOLOGY DIFF REVIEW OK
[2023-03-15 08:36] LABS: ANISOCYTOSIS 1+; EOSINOPHIL 1 % (0-4); HYPOCHROMIA 1+; MYELOCYTE 1 % (0-0); NUCLEATED RED BLOOD CELL 1 (0-6); PLATELET ESTIMATE NORMAL (NORMAL)
[2023-03-15 08:38] LABS: NEUTROPHILS 14 % (42.0-75.2)
[2023-03-15 08:39] LABS: LYMPHOCYTE 82 % (20.0-51.0)
--- NOTE | 2023-03-15 09:21 | NUR ---
SW met with the patient to discuss discharge plan. The patient lives alone in [place]. She reports independence with ADLs and has a cane, walker, and CPAP. The patient's PCP is Dr. Katrin Marinelli and she obtains her medications from [facility]. The patient's PCP is Dr. Katrin Marinelli and she obtains her medications from [facility]. The patient does not have a DPOA-HC in EMR, but she states that she believes she has one completed and that she designated her two daughters: Mackenzie Moreau (ph#[phone]) and Romeo Mascorro (ph#[phone]). She states that she is not and has three children: Mackenzie, Romeo, and Jeremy. The patient plans to return home upon discharge. No additional needs at this time. *Discharge plan: home*
--- NOTE | 2023-03-15 12:31 | NUR ---
Assessment completed this am. O2 5L/NC. Reports SOA at rest and with exertion. Sitting up in chair at this time and reports feeling better when sitting upright. Has productive cough. Reports pain to "ribs" with coughing only- [place] and Roman Stewart given this morning and patient reports it is helpful, rating pain 8/10 at this time.
--- NOTE | 2023-03-15 18:14 | NUR ---
Pt reports cough has improved- order rec'd for cough drops as needed- and continues to take [place] and Tessalon Filomena prn. Pt with bloody nose earlier today- humidified air added to oxygen and order rec'd for nasal spray. Continues to be on oxygen 4L/NC. Blood pressures improved.
--- NOTE | 2023-03-15 21:43 | NUR ---
Patient assessed around 2049. Alert and oriented. Given PRN [place] for pain as requested. Continues on oxygen at 4 L/min via NC. Remains in A-fib on telemetry, rate controlled at this time. Aware of possible ALTAGRACIA/CV tomorrow, NPO after midnight. Voices no questions, needs, or concerns at this time. In bed with call light within reach.
[2023-03-16] VITALS (9 sets, daily range): BP systolic 90–135; BP diastolic 34–78; PULSE 78–107; TEMP 97.7–98.4
--- NOTE | 2023-03-16 05:49 | NUR ---
Remains in A-flutter. Has been NPO since midnight for possible ALTAGRACIA/CV today. Continues to have cough. Voices no questions, needs, or concerns at this time. In bed with call light within reach.
[2023-03-16 07:25] LABS: HEMOGLOBIN 11.2 g/dl (12.5-16.0); MEAN CELL VOLUME 93 fl (80.0-100.0); MEAN CORPUSCULAR HEMOGLOBIN 30 pg (27-31); MEAN CORPUSCULAR HGB CONC 32 g/dl (33.0-37.0); PLATELET COUNT 236 K/mm3 (130-400); RED BLOOD COUNT 3.78 M/mm3 (4.10-5.30); REDCELL DISTRIBUTION WIDTH-CV 14.4 % (11.5-14.5)
[2023-03-16 07:29] LABS: HEMATOCRIT 35.3 % (37.0-47.0)
[2023-03-16 07:45] LABS: ALBUMIN 2.2 gm/dL (3.4-4.8); CALCIUM 8.3 mg/dL (8.4-10.2); CREATININE, serum 1.22 mg/dL (0.57-1.11); MAGNESIUM 1.8 mg/dL (1.6-2.6); PHOSPHOROUS 3.5 mg/dL (2.3-4.7); POTASSIUM 3.8 mmol/L (3.5-4.5)
--- NOTE | 2023-03-16 09:00 | NUR ---
Patient is resting in bed, alert and oriented x 4, denies any pain at this time. Getting 4L O2. Some cought. Assessment completed, meds provided. No further needs at thist time. Call light within reach.
[2023-03-16 09:29] LABS: ANISOCYTOSIS 1+; BAND 3 % (0-10); BASOPHIL 1 % (0-2); EOSINOPHIL 2 % (0-4); HYPOCHROMIA 2+; LYMPHOCYTE 54 % (20.0-51.0); MYELOCYTE 1 % (0-0); NEUTROPHILS 35 % (42.0-75.2); PLATELET ESTIMATE NORMAL (NORMAL)
[2023-03-16 09:30] LABS: OVALOCYTES 1+
[2023-03-16] MEDS ORDERED: ASPIRIN 81M81 MG/TA2 PO (10:16)
[2023-03-16] MEDS ORDERED: CEFTIN500 MG PO (10:17)
[2023-03-16] MEDS ORDERED: DOXYCYCLINE HY100 MG PO (10:17)
[2023-03-16] MEDS ORDERED: OXYGEN NASAL.CANN (11:39)
--- NOTE | 2023-03-16 12:50 | NUR ---
The PA notified SOUMYA that the clinical team is ready to discharge the patient today. An exercise oximetry was ordered and the patient qualified for 3 liters of oxygen. SOUMYA met with the patient to update and obtain DME company preference. The patient was agreeable to getting the oxygen from [facility]. SOUMYA presented and read the IM form outloud to the patient. The patient verbalized understanding and agreement to discharge today. She signed the form and declined a copy. SOUMYA contacted and faxed the walker order to Connor at [facility]. Awaiting delivery of oxygen. RN updated. No additional needs at this time.
[2023-03-16] MEDS ORDERED: ZOFRAN 4MG T4 MG/TAB PO (16:28)
--- NOTE | 2023-03-16 17:44 | NUR ---
Patient was provided with discharge information. All questions answered. IV access and telemetry were discontinued.
== END 2023-03-16 18:07 | disposition home or self-care (01) | DRG 193 ==
LOC: COL.ER 11:15 → MEDICAL 13:51
PROVIDERS: Nurse Practitioner; ADMIT Internal Medicine
DX: J18.9 Pneumonia, unspecified organism (principal); J96.01 Acute respiratory failure with hypoxia; C91.10 Chronic lymphocytic leukemia of B-cell type not having achieved remission; N17.9 Acute kidney failure, unspecified; N18.9 Chronic kidney disease, unspecified; I48.91 Unspecified atrial fibrillation; Z79.01 Long term (current) use of anticoagulants; Z86.73 Personal history of transient ischemic attack (TIA), and cerebral infarction without residual deficits; R04.0 Epistaxis; Z95.0 Presence of cardiac pacemaker; R00.1 Bradycardia, unspecified; M79.7 Fibromyalgia; G47.33 Obstructive sleep apnea (adult) (pediatric); E78.5 Hyperlipidemia, unspecified; N32.81 Overactive bladder; E87.6 Hypokalemia; I12.9 Hypertensive chronic kidney disease with stage 1 through stage 4 chronic kidney disease, or unspecified chronic kidney disease; D63.0 Anemia in neoplastic disease; D63.1 Anemia in chronic kidney disease
CPT/HCPCS: J0692; J0696; J1940; J2543; J7030